=== PATIENT | female | born 1980 | race Caucasian/White ===

== ENCOUNTER 2016-11-16 15:38 | Inpatient (IN) | payer MEDICAID ==
[~2016-11-16] VITALS: Ht 172.7 cm; Wt 86.4 kg
[~2016-11-16 15:38] MED LIST: HYDR-3240 PO; IBUP-1222 PO
[2016-11-16] MEDS ORDERED: D5%-LACTATED RINGERS 1,000 ML IV SCH (15:59)
[2016-11-16] MEDS ORDERED: OXYTOCIN 30U/ 0.9% NaCL 500ML 500 ML IV ONE (15:59)
[2016-11-16] MEDS ORDERED: LACTATED RINGERS 1,000 ML IV SCH (15:59)
[2016-11-16] MEDS ORDERED: TERBUTALINE 1 MG/ML, 1ML IVPush PRN (16:00)
[2016-11-16] MEDS ORDERED: FENTANYL PF 100 MCG/2ML IV PRN (16:00)
[2016-11-16] MEDS ORDERED: ONDANSETRON 2MG/ML, 2ML IVPush PRN (16:00)
[2016-11-16] MEDS ORDERED: FENTANYL PF 100 MCG/2ML IVPush PRN (16:00)
[2016-11-16] MEDS ORDERED: OXYTOCIN 30U/ 0.9% NaCL 500ML 500 ML ONE ×2 (16:01→19:17)
[2016-11-16] MEDS ORDERED: NEWBORN KIT ONE (16:02)
[2016-11-16 16:21] LABS: HEMOGLOBIN 14.2 g/dL (11.7-16.4); WHITE BLOOD COUNT 8.4 x10^3/uL (3.4-10)
[2016-11-16] MEDS ORDERED: MISOPROSTOL 200 MCG TABLET ONE (16:24)
[2016-11-16] MEDS ORDERED: LIDOCAINE 1%, 20ML ONE (16:24)
[2016-11-16] MEDS ORDERED: OXYTOCIN 30U/ 0.9% NaCL 500ML 500 ML IV SCH (17:28)
[2016-11-16] MEDS ORDERED: HYDROcodone/APAP 5/325 TABLET PO PRN ×2 (17:30)
[2016-11-16] MEDS ORDERED: MISOPROSTOL 200 MCG TABLET PR PRN (17:30)
[2016-11-16] MEDS ORDERED: IBUPROFEN 600 MG TABLET PO PRN (17:30)
[2016-11-16] MEDS ORDERED: ACETAMINOPHEN 325 MG TABLET PO PRN ×2 (17:30)
[2016-11-16] MEDS ORDERED: DOCUSATE 100 MG CAPSULE PO PRN (17:30)
[2016-11-16 20:00] VITALS: BP 110/65
[2016-11-17 00:15] VITALS: BP 112/64
[2016-11-17 01:02] LABS: HEMATOCRIT 35.4 % (34.6-47.8); HEMOGLOBIN 12.1 g/dL (11.7-16.4); WHITE BLOOD COUNT 10.3 x10^3/uL (3.4-10)
[2016-11-17 04:15] VITALS: BP 108/62
[2016-11-17 08:00] VITALS: BP 117/62
[2016-11-17] MEDS ORDERED: IBUP-1222 PO (08:41)
[2016-11-17] MEDS ORDERED: HYDR-3240 PO (08:41)
[2016-11-17] MEDS ORDERED: PRENATAL VIT/IRON/FA 1 EACH TABLET PO SCH (09:00)
[2016-11-17 11:30] VITALS: BP 115/69
== END 2016-11-17 17:31 | disposition home or self-care (01) | DRG 775 ==
LOC: LDOP 15:38 → LDIP 16:07 → 2NW 19:35
PROVIDERS: ADMIT Obstetrics & Gynecology; ATTEND Obstetrics & Gynecology
PROC: 10E0XZZ Delivery of Products of Conception, External Approach (ICD-10-PCS; principal; 2016-11-16)
PROC: 0KQM0ZZ Repair Perineum Muscle, Open Approach (ICD-10-PCS; 2016-11-16)
PROC: 10907ZC Drainage of Amniotic Fluid, Therapeutic from Products of Conception, Via Natural or Artificial Opening (ICD-10-PCS; 2016-11-16)
DX: O69.81X0 Labor and delivery complicated by cord around neck, without compression, not applicable or unspecified (principal); O70.1 Second degree perineal laceration during delivery; Z37.0 Single live birth; Z3A.40 40 weeks gestation of pregnancy
CPT/HCPCS: 36415; 85025; 86850; 86900; J2590